=== PATIENT | female | born 1990 | race African-American/Black ===

== ENCOUNTER 2019-01-26 12:06 | Emergency (ER) | payer MEDICAID ==
[~2019-01-26] VITALS: Ht 170.2 cm; Wt 90.0 kg
[2019-01-26] MEDS ORDERED: SODIUM CHLORIDE 0.9% 1,000 ML IV ONE (12:55)
[2019-01-26] MEDS ORDERED: KETOROLAC 30MG/ML VIAL IV STA (12:55)
[2019-01-26 15:21] LABS: BASOPHILS % 0.3 % (0.0-2.0); EOSINOPHILS % 2.9 % (0.0-5.0); HEMATOCRIT. 40.1 % (36.0-48.0); HEMOGLOBIN. 13.3 g/dL (12.0-16.0); LYMPHOCYTES % 47.9 % (20.0-50.0); MEAN CORPUSCULAR HEMOGLOBIN 28.7 pg (28.0-32.0); MEAN CORPUSCULAR VOLUME 86.9 fL (81.0-99.0); MEAN PLATELET VOLUME 7.9 fl (7.4-10.4); MONOCYTES % 5.8 % (2.0-8.0); NEUTROPHILS % 43.1 % (40.0-76.0); PLATELET 298 x1000/uL (130-400); RED BLOOD CELL COUNT 4.62 mill/uL (4.2-5.4)
[2019-01-26 15:24] LABS: PARTIAL THROMBOPLASTIN TIME 29.9 sec (23.4-31.0); PROTHROMBIN TIME 10.5 sec (9.6-11.0)
[2019-01-26 15:44] LABS: CHLORIDE 110 mEq/L (98-107)
[2019-01-26 16:50] VITALS: BP 114/78
[2019-01-26] MEDS ORDERED: IOHEXOL-350 100 ML BOTTLE ONE (16:59)
== END 2019-01-26 18:30 | disposition home or self-care (01) ==
LOC: ER 12:06
DX: G43.909 Migraine, unspecified, not intractable, without status migrainosus (principal); H43.392 Other vitreous opacities, left eye; I51.9 Heart disease, unspecified; Z88.3 Allergy status to other anti-infective agents; Z88.2 Allergy status to sulfonamides
CPT/HCPCS: 36415; 70496; 80048; 81025; 85025; 85610; 85730; 96374; 99284; J1885; J7030; Q9967; Z7610

== ENCOUNTER 2019-04-04 22:41 | Emergency (ER) | payer MEDICAID, OTHER ==
[~2019-04-04] VITALS: Ht 170.2 cm; Wt 101.0 kg
[2019-04-05 00:22] LABS: BASOPHILS % 0.6 % (0.0-2.0); EOSINOPHILS % 4.9 % (0.0-5.0); HEMATOCRIT. 38.9 % (36.0-48.0); HEMOGLOBIN. 12.9 g/dL (12.0-16.0); LYMPHOCYTES % 46.2 % (20.0-50.0); MEAN CORPUSCULAR HEMOGLOBIN 28.7 pg (28.0-32.0); MEAN CORPUSCULAR VOLUME 86.3 fL (81.0-99.0); MEAN PLATELET VOLUME 8.2 fl (7.4-10.4); MONOCYTES % 8.2 % (2.0-8.0); NEUTROPHILS % 40.1 % (40.0-76.0); PLATELET 306 x1000/uL (130-400); RED BLOOD CELL COUNT 4.51 mill/uL (4.2-5.4); RED CELL DISTRIBUTION WIDTH 13.3 % (11.6-14.6)
[2019-04-05 00:28] LABS: CHLORIDE 109 mEq/L (98-107)
[2019-04-05 00:29] LABS: CLARITY URINE CLEAR (CLEAR); COLOR URINE YELLOW (YELLOW); KETONES URINE TRACE (NEGATIVE); LEUKOCYTE ESTERASE URINE NEGATIVE (NEGATIVE); NITRITE URINE NEGATIVE (NEGATIVE); OCCULT BLOOD URINE NEGATIVE (NEGATIVE); PH URINE 5.5 (4.5-8.0); PROTEIN URINE NEGATIVE (NEGATIVE); SPECIFIC GRAVITY URINE 1.039 (1.005-1.030)
[2019-04-05 00:30] LABS: PROTHROMBIN TIME 10.3 sec (9.6-11.0)
[2019-04-05 00:31] LABS: HCG SCREEN NEGATIVE
[2019-04-05] MEDS ORDERED: IBUPROFEN 800MG TABLET PO ONE (00:45)
[2019-04-05] MEDS ORDERED: ACETAMINOPHEN 325MG TABLET PO ONE (00:45)
[2019-04-05 01:27] VITALS: BP 119/75
== END 2019-04-05 01:29 | disposition home or self-care (01) ==
LOC: ER 22:41
DX: R51 Headache (principal); H53.8 Other visual disturbances
CPT/HCPCS: 36415; 71045; 81003; 81025; 82962; 84484; 84703; 93005; 99284

== ENCOUNTER 2019-04-18 20:27 | Emergency (ER) | payer OTHER ==
[~2019-04-18] VITALS: Ht 170.2 cm; Wt 73.0 kg
[2019-04-18] MEDS ORDERED: IBUPROFEN 600MG TABLET PO STA (21:00)
[2019-04-18 21:15] LABS: BASOPHILS % 1.1 % (0.0-2.0); EOSINOPHILS % 4.1 % (0.0-5.0); HEMATOCRIT. 40.1 % (36.0-48.0); HEMOGLOBIN. 13.5 g/dL (12.0-16.0); LYMPHOCYTES % 47.3 % (20.0-50.0); MEAN CORPUSCULAR VOLUME 86.3 fL (81.0-99.0); MEAN PLATELET VOLUME 8.3 fl (7.4-10.4); MONOCYTES % 6.4 % (2.0-8.0); NEUTROPHILS % 41.1 % (40.0-76.0); PLATELET 283 x1000/uL (130-400); RED BLOOD CELL COUNT 4.65 mill/uL (4.2-5.4); RED CELL DISTRIBUTION WIDTH 13.9 % (11.6-14.6)
[2019-04-18 21:22] LABS: CHLORIDE 107 mEq/L (98-107)
[2019-04-18 22:10] VITALS: BP 125/78
== END 2019-04-18 22:15 | disposition home or self-care (01) ==
LOC: ER 20:27
DX: R07.89 Other chest pain (principal); I49.9 Cardiac arrhythmia, unspecified; R00.0 Tachycardia, unspecified; Z88.1 Allergy status to other antibiotic agents; Z88.2 Allergy status to sulfonamides
CPT/HCPCS: 36415; 93005; 99284

== ENCOUNTER 2019-06-09 19:41 | Emergency (ER) | payer MEDICAID, OTHER ==
[~2019-06-09] VITALS: Ht 172.7 cm; Wt 64.0 kg
[2019-06-09] MEDS ORDERED: ONDANSETRON 4MG ODT PO ONE (22:30)
[2019-06-09 22:49] LABS: BASOPHILS % 0.4 % (0.0-2.0); EOSINOPHILS % 2.2 % (0.0-5.0); HEMATOCRIT. 38.2 % (36.0-48.0); HEMOGLOBIN. 12.7 g/dL (12.0-16.0); LYMPHOCYTES % 36.8 % (20.0-50.0); MEAN CORPUSCULAR HEMOGLOBIN 28.8 pg (28.0-32.0); MEAN CORPUSCULAR VOLUME 86.8 fL (81.0-99.0); MEAN PLATELET VOLUME 8.6 fl (7.4-10.4); MONOCYTES % 7.5 % (2.0-8.0); NEUTROPHILS % 53.1 % (40.0-76.0); PLATELET 255 x1000/uL (130-400); RED CELL DISTRIBUTION WIDTH 13.8 % (11.6-14.6)
[2019-06-09 22:50] LABS: CHLORIDE 110 mEq/L (98-107)
[2019-06-10 00:02] LABS: CLARITY URINE CLOUDY (CLEAR); COLOR URINE YELLOW (YELLOW); KETONES URINE TRACE (NEGATIVE); LEUKOCYTE ESTERASE URINE 1+ (NEGATIVE); NITRITE URINE NEGATIVE (NEGATIVE); OCCULT BLOOD URINE NEGATIVE (NEGATIVE); PROTEIN URINE NEGATIVE (NEGATIVE); SPECIFIC GRAVITY URINE 1.031 (1.005-1.030)
[2019-06-10 01:50] VITALS: BP 120/78
== END 2019-06-10 02:24 | disposition home or self-care (01) ==
LOC: ER 19:41
DX: R00.2 Palpitations (principal); I49.9 Cardiac arrhythmia, unspecified; Z88.2 Allergy status to sulfonamides; Z88.3 Allergy status to other anti-infective agents
CPT/HCPCS: 36415; 81003; 81025; 84484; 93005; 99284

== ENCOUNTER 2019-07-18 00:10 | Emergency (ER) | payer MEDICAID ==
[~2019-07-18] VITALS: Ht 170.2 cm; Wt 83.0 kg
[2019-07-18] MEDS ORDERED: SODIUM CHLORIDE 0.9% 1,000 ML IV ONE (01:16)
[2019-07-18] MEDS ORDERED: ONDANSETRON HCL 4MG/2ML INJ IV STA (01:16)
[2019-07-18 01:39] LABS: BASOPHILS % 0.5 % (0.0-2.0); EOSINOPHILS % 4.1 % (0.0-5.0); HEMATOCRIT. 39.2 % (36.0-48.0); HEMOGLOBIN. 13.1 g/dL (12.0-16.0); LYMPHOCYTES % 52.2 % (20.0-50.0); MEAN CORPUSCULAR HEMOGLOBIN 28.7 pg (28.0-32.0); MEAN PLATELET VOLUME 8.7 fl (7.4-10.4); MONOCYTES % 6.1 % (2.0-8.0); NEUTROPHILS % 37.1 % (40.0-76.0); PLATELET 344 x1000/uL (130-400); RED BLOOD CELL COUNT 4.56 mill/uL (4.2-5.4); RED CELL DISTRIBUTION WIDTH 14.6 % (11.6-14.6)
[2019-07-18 01:44] LABS: CHLORIDE 105 mEq/L (98-107)
[2019-07-18 04:51] LABS: CLARITY URINE CLEAR (CLEAR); COLOR URINE YELLOW (YELLOW); KETONES URINE 3+ (NEGATIVE); LEUKOCYTE ESTERASE URINE 1+ (NEGATIVE); NITRITE URINE NEGATIVE (NEGATIVE); OCCULT BLOOD URINE NEGATIVE (NEGATIVE); PROTEIN URINE NEGATIVE (NEGATIVE); SPECIFIC GRAVITY URINE 1.038 (1.005-1.030); UROBILINOGEN URINE 0.2 E.U./dL (0.2-1.0)
[2019-07-18 05:02] LABS: CANNABINOID URINE SCREEN NEGATIVE (NEGATIVE); METHADONE URINE SCREEN NEGATIVE (NEGATIVE); OPIATES URINE SCREEN NEGATIVE (NEGATIVE); PHENCYCLIDINE URINE SCREEN NEGATIVE (NEGATIVE)
[2019-07-18 05:03] LABS: *AMPHETAMINES SCREEN URINE NEGATIVE (NEGATIVE); *BARBITURATES SCREEN URINE NEGATIVE (NEGATIVE); *BENZODIAZEPINES SCREEN URINE NEGATIVE (NEGATIVE); *COCAINE SCREEN URINE NEGATIVE (NEGATIVE)
[2019-07-18 05:57] VITALS: BP 129/90
== END 2019-07-18 05:59 | disposition home or self-care (01) ==
LOC: ER 00:10
DX: R10.13 Epigastric pain (principal); R00.2 Palpitations; R42 Dizziness and giddiness; R00.0 Tachycardia, unspecified; Z88.2 Allergy status to sulfonamides; Z86.79 Personal history of other diseases of the circulatory system
CPT/HCPCS: 36415; 71045; 80053; 80305; 81003; 83690; 84484; 85025; 93005; 96374; 99284; J2405; J7030

== ENCOUNTER 2019-07-19 08:21 | Emergency (ER) | payer MEDICAID ==
[~2019-07-19] VITALS: Ht 170.2 cm; Wt 64.0 kg
[2019-07-19] MEDS ORDERED: ONDANSETRON HCL 4MG/2ML INJ IV STA (08:41)
[2019-07-19] MEDS ORDERED: SODIUM CHLORIDE 0.9% 1,000 ML IV ONE (08:41)
[2019-07-19 09:28] LABS: BASOPHILS % 0.8 % (0.0-2.0); EOSINOPHILS % 4.8 % (0.0-5.0); HEMATOCRIT. 40.1 % (36.0-48.0); HEMOGLOBIN. 13.5 g/dL (12.0-16.0); LYMPHOCYTES % 52.3 % (20.0-50.0); MEAN CORPUSCULAR HEMOGLOBIN 28.8 pg (28.0-32.0); MEAN CORPUSCULAR VOLUME 85.7 fL (81.0-99.0); MEAN PLATELET VOLUME 8.6 fl (7.4-10.4); MONOCYTES % 6.2 % (2.0-8.0); NEUTROPHILS % 35.9 % (40.0-76.0); PLATELET 305 x1000/uL (130-400); RED BLOOD CELL COUNT 4.68 mill/uL (4.2-5.4); RED CELL DISTRIBUTION WIDTH 14.2 % (11.6-14.6)
[2019-07-19] MEDS ORDERED: VISCOUS LIDOCAINE 2% 15 ML UDC PO STA (09:28)
[2019-07-19] MEDS ORDERED: FAMOTIDINE 20MG/2ML VIAL IV STA ×2 (09:28→12:33)
[2019-07-19] MEDS ORDERED: MAGNESIUM/ALUMINUM HYDROXIDE/SIMETHICONE 30ML UDC PO STA ×2 (09:28→12:33)
[2019-07-19 09:35] LABS: CHLORIDE 105 mEq/L (98-107)
[2019-07-19 09:48] LABS: HCG SCREEN NEGATIVE
[2019-07-19 11:00] LABS: CLARITY URINE CLOUDY (CLEAR); COLOR URINE YELLOW (YELLOW); KETONES URINE 2+ (NEGATIVE); LEUKOCYTE ESTERASE URINE TRACE (NEGATIVE); NITRITE URINE NEGATIVE (NEGATIVE); OCCULT BLOOD URINE NEGATIVE (NEGATIVE); PH URINE 5.5 (4.5-8.0); PROTEIN URINE NEGATIVE (NEGATIVE); SPECIFIC GRAVITY URINE 1.064 (1.005-1.030); UROBILINOGEN URINE 0.2 E.U./dL (0.2-1.0)
[2019-07-19] MEDS ORDERED: CEFTRIAXONE 1 G PREMIX 50 ML IV ONE (11:30)
[2019-07-19] MEDS ORDERED: IOHEXOL-300 100 ML BOTTLE ONE ×2 (12:54→13:32)
[2019-07-19 13:02] VITALS: BP 122/78
[2019-07-19 14:11] LABS: *AMPHETAMINES SCREEN URINE NEGATIVE (NEGATIVE); *BARBITURATES SCREEN URINE NEGATIVE (NEGATIVE); *BENZODIAZEPINES SCREEN URINE NEGATIVE (NEGATIVE); *COCAINE SCREEN URINE NEGATIVE (NEGATIVE); METHADONE URINE SCREEN NEGATIVE (NEGATIVE); OPIATES URINE SCREEN NEGATIVE (NEGATIVE)
[2019-07-19 14:12] LABS: CANNABINOID URINE SCREEN NEGATIVE (NEGATIVE); PHENCYCLIDINE URINE SCREEN NEGATIVE (NEGATIVE)
== END 2019-07-19 12:55 | disposition home or self-care (01) ==
LOC: ER 08:21 → CANBEDREQ 13:04
DX: K29.70 Gastritis, unspecified, without bleeding (principal); N39.0 Urinary tract infection, site not specified; F41.1 Generalized anxiety disorder; K59.00 Constipation, unspecified; R03.0 Elevated blood-pressure reading, without diagnosis of hypertension
CPT/HCPCS: 36415; 71045; 74177; 80053; 80305; 81003; 83605; 83690; 83880; 84443; 84484; 84703; 85025; 85379; 93005; 96361; 96365; 96375; 96376; 99284; J0696; J2405; J3490; J7030; Q9967; Z7610

== ENCOUNTER 2019-08-11 07:24 | Emergency (ER) | payer MEDICAID ==
[~2019-08-11] VITALS: Ht 170.2 cm; Wt 79.0 kg
[2019-08-11] MEDS ORDERED: DICYCLOMINE 10 MG/5 ML ORAL SYR PO ONE (08:30)
[2019-08-11] MEDS ORDERED: MAGNESIUM/ALUMINUM HYDROXIDE/SIMETHICONE 30ML UDC PO ONE (08:30)
[2019-08-11 08:44] LABS: EOSINOPHILS % 6.7 % (0.0-5.0); HEMATOCRIT. 38.3 % (36.0-48.0); HEMOGLOBIN. 12.6 g/dL (12.0-16.0); LYMPHOCYTES % 39.4 % (20.0-50.0); MEAN CORPUSCULAR HEMOGLOBIN 28.3 pg (28.0-32.0); MEAN CORPUSCULAR VOLUME 85.8 fL (81.0-99.0); MEAN PLATELET VOLUME 8.2 fl (7.4-10.4); MONOCYTES % 8.2 % (2.0-8.0); NEUTROPHILS % 44.7 % (40.0-76.0); PLATELET 279 x1000/uL (130-400); RED BLOOD CELL COUNT 4.47 mill/uL (4.2-5.4); RED CELL DISTRIBUTION WIDTH 14.8 % (11.6-14.6)
[2019-08-11 08:51] LABS: CHLORIDE 107 mEq/L (98-107)
[2019-08-11 09:31] LABS: CLARITY URINE CLOUDY (CLEAR); COLOR URINE YELLOW (YELLOW); KETONES URINE 1+ (NEGATIVE); LEUKOCYTE ESTERASE URINE 1+ (NEGATIVE); NITRITE URINE NEGATIVE (NEGATIVE); OCCULT BLOOD URINE NEGATIVE (NEGATIVE); PH URINE 5.5 (4.5-8.0); PROTEIN URINE TRACE (NEGATIVE); SPECIFIC GRAVITY URINE 1.025 (1.005-1.030); UROBILINOGEN URINE 0.2 E.U./dL (0.2-1.0)
[2019-08-11 10:24] VITALS: BP 100/96
== END 2019-08-11 10:31 | disposition home or self-care (01) ==
LOC: ER 07:24
DX: R00.2 Palpitations (principal); N30.00 Acute cystitis without hematuria; I49.9 Cardiac arrhythmia, unspecified; Z88.2 Allergy status to sulfonamides
CPT/HCPCS: 36415; 81003; 93005; 99284

== ENCOUNTER 2019-08-19 12:37 | Emergency (ER) | payer MEDICAID ==
[~2019-08-19] VITALS: Ht 170.2 cm; Wt 110.0 kg
[2019-08-19 12:42] VITALS: BP 108/68
== END 2019-08-19 15:21 | disposition left against medical advice (07) ==
LOC: ER 12:50
DX: Z53.21 Procedure and treatment not carried out due to patient leaving prior to being seen by health care provider (principal)

== ENCOUNTER 2019-08-20 14:49 | Emergency (ER) | payer MEDICAID ==
[~2019-08-20] VITALS: Ht 170.2 cm; Wt 78.0 kg
[2019-08-20] MEDS ORDERED: IBUPROFEN 800MG TABLET PO ONE (21:30)
[2019-08-20] MEDS ORDERED: ACETAMINOPHEN 325MG TABLET PO ONE (21:30)
[2019-08-20] MEDS ORDERED: AZITHROMYCIN 500 MG TABLET PO ONE (21:30)
[2019-08-20] MEDS ORDERED: PREDNISONE 20MG TABLET PO ONE (21:30)
[2019-08-20 22:36] VITALS: BP 136/80
[2019-08-21 01:17] LABS: CLARITY URINE CLEAR (CLEAR); COLOR URINE YELLOW (YELLOW); KETONES URINE 3+ (NEGATIVE); LEUKOCYTE ESTERASE URINE 1+ (NEGATIVE); NITRITE URINE NEGATIVE (NEGATIVE); OCCULT BLOOD URINE NEGATIVE (NEGATIVE); PROTEIN URINE TRACE (NEGATIVE); SPECIFIC GRAVITY URINE 1.029 (1.005-1.030); UROBILINOGEN URINE 0.2 E.U./dL (0.2-1.0)
== END 2019-08-21 00:51 | disposition home or self-care (01) ==
LOC: ER 18:14
DX: J40 Bronchitis, not specified as acute or chronic (principal)
CPT/HCPCS: 71045; 81003; 87804; 99284; J7512

== ENCOUNTER 2019-09-04 09:23 | Emergency (ER) | payer OTHER ==
[~2019-09-04] VITALS: Ht 167.6 cm; Wt 61.0 kg
[2019-09-04 14:14] LABS: CLARITY URINE CLEAR (CLEAR); COLOR URINE YELLOW (YELLOW); KETONES URINE NEGATIVE (NEGATIVE); LEUKOCYTE ESTERASE URINE 3+ (NEGATIVE); NITRITE URINE NEGATIVE (NEGATIVE); OCCULT BLOOD URINE NEGATIVE (NEGATIVE); PH URINE 7.5 (4.5-8.0); PROTEIN URINE NEGATIVE (NEGATIVE); UROBILINOGEN URINE 0.2 E.U./dL (0.2-1.0)
[2019-09-04 15:06] VITALS: BP 154/78
== END 2019-09-04 15:08 | disposition home or self-care (01) ==
LOC: ER 09:23
DX: B37.49 Other urogenital candidiasis (principal); I10 Essential (primary) hypertension; R09.81 Nasal congestion; R05 Cough; Z87.440 Personal history of urinary (tract) infections; Z88.2 Allergy status to sulfonamides; Z88.8 Allergy status to other drugs, medicaments and biological substances
CPT/HCPCS: 81003; 99283

== ENCOUNTER 2019-09-06 08:06 | Emergency (ER) | payer MEDICAID, OTHER ==
[~2019-09-06] VITALS: Ht 170.2 cm; Wt 77.0 kg
[2019-09-06 09:04] LABS: CHLORIDE 108 mEq/L (98-107)
[2019-09-06 09:09] LABS: BASOPHILS % 0.6 % (0.0-2.0); EOSINOPHILS % 2.5 % (0.0-5.0); HEMATOCRIT. 38.8 % (36.0-48.0); HEMOGLOBIN. 13.2 g/dL (12.0-16.0); MEAN CORPUSCULAR HEMOGLOBIN 29.2 pg (28.0-32.0); MEAN CORPUSCULAR VOLUME 86.2 fL (81.0-99.0); MEAN PLATELET VOLUME 8.3 fl (7.4-10.4); MONOCYTES % 7.6 % (2.0-8.0); NEUTROPHILS % 46.3 % (40.0-76.0); PLATELET 313 x1000/uL (130-400); RED CELL DISTRIBUTION WIDTH 14.9 % (11.6-14.6)
[2019-09-06 09:46] LABS: CLARITY URINE CLEAR (CLEAR); COLOR URINE YELLOW (YELLOW); KETONES URINE TRACE (NEGATIVE); LEUKOCYTE ESTERASE URINE NEGATIVE (NEGATIVE); NITRITE URINE NEGATIVE (NEGATIVE); OCCULT BLOOD URINE NEGATIVE (NEGATIVE); PH URINE 5.5 (4.5-8.0); PROTEIN URINE NEGATIVE (NEGATIVE); SPECIFIC GRAVITY URINE 1.012 (1.005-1.030); UROBILINOGEN URINE 0.2 E.U./dL (0.2-1.0)
[2019-09-06 11:00] VITALS: BP 106/57
== END 2019-09-06 11:17 | disposition home or self-care (01) ==
LOC: ER 08:06
DX: R30.0 Dysuria (principal); R00.2 Palpitations; Z88.2 Allergy status to sulfonamides; Z88.3 Allergy status to other anti-infective agents
CPT/HCPCS: 36415; 76770; 80053; 81003; 85025; 93005; 99284

== ENCOUNTER 2019-09-22 17:58 | Emergency (ER) | payer OTHER ==
[~2019-09-22] VITALS: Ht 170.2 cm; Wt 72.0 kg
[2019-09-22] MEDS ORDERED: ONDANSETRON HCL 4MG/2ML INJ IV STA (20:20)
[2019-09-22] MEDS ORDERED: SODIUM CHLORIDE 0.9% 1,000 ML IV ONE (20:20)
[2019-09-22 21:18] LABS: CLARITY URINE CLEAR (CLEAR); COLOR URINE YELLOW (YELLOW); KETONES URINE TRACE (NEGATIVE); LEUKOCYTE ESTERASE URINE TRACE (NEGATIVE); NITRITE URINE NEGATIVE (NEGATIVE); OCCULT BLOOD URINE NEGATIVE (NEGATIVE); PH URINE 5.5 (4.5-8.0); PROTEIN URINE NEGATIVE (NEGATIVE); SPECIFIC GRAVITY URINE 1.017 (1.005-1.030); UROBILINOGEN URINE 0.2 E.U./dL (0.2-1.0)
[2019-09-22] MEDS ORDERED: ONDANSETRON 4MG ODT PO ONE (21:45)
[2019-09-22] MEDS ORDERED: MORPHINE SULFATE 4 MG/ML CPJ (NOT FOR IM USE) IV ONE (21:45)
[2019-09-22 22:03] LABS: BASOPHILS % 0.5 % (0.0-2.0); EOSINOPHILS % 3.8 % (0.0-5.0); HEMATOCRIT. 38.8 % (36.0-48.0); HEMOGLOBIN. 12.7 g/dL (12.0-16.0); LYMPHOCYTES % 46.5 % (20.0-50.0); MEAN CORPUSCULAR HEMOGLOBIN 28.3 pg (28.0-32.0); MEAN CORPUSCULAR VOLUME 86.3 fL (81.0-99.0); MEAN PLATELET VOLUME 8.3 fl (7.4-10.4); MONOCYTES % 6.6 % (2.0-8.0); NEUTROPHILS % 42.6 % (40.0-76.0); PLATELET 287 x1000/uL (130-400); RED CELL DISTRIBUTION WIDTH 15.2 % (11.6-14.6)
[2019-09-22 22:09] LABS: CHLORIDE 107 mEq/L (98-107)
[2019-09-22] MEDS ORDERED: KETOROLAC 15MG/ML VIAL IV ONE (22:15)
[2019-09-22 22:30] VITALS: BP 108/68
== END 2019-09-22 23:15 | disposition home or self-care (01) ==
LOC: ER 17:58
DX: R19.7 Diarrhea, unspecified (principal); R11.2 Nausea with vomiting, unspecified; Z88.2 Allergy status to sulfonamides; Z88.8 Allergy status to other drugs, medicaments and biological substances
CPT/HCPCS: 36415; 80053; 81003; 83690; 85025; 96360; 99283; J1885; J2405; J7030; Q0162

== ENCOUNTER 2019-09-28 01:55 | Emergency (ER) | payer MEDICAID, OTHER ==
[~2019-09-28] VITALS: Ht 172.7 cm; Wt 68.0 kg
[2019-09-28] MEDS ORDERED: VISCOUS LIDOCAINE 2% 15 ML UDC PO STA (02:54)
[2019-09-28] MEDS ORDERED: MAGNESIUM/ALUMINUM HYDROXIDE/SIMETHICONE 30ML UDC PO STA (02:54)
[2019-09-28 03:31] LABS: CLARITY URINE CLEAR (CLEAR); COLOR URINE YELLOW (YELLOW); KETONES URINE TRACE (NEGATIVE); LEUKOCYTE ESTERASE URINE NEGATIVE (NEGATIVE); NITRITE URINE NEGATIVE (NEGATIVE); OCCULT BLOOD URINE NEGATIVE (NEGATIVE); PROTEIN URINE NEGATIVE (NEGATIVE); SPECIFIC GRAVITY URINE 1.016 (1.005-1.030); UROBILINOGEN URINE 0.2 E.U./dL (0.2-1.0)
[2019-09-28 03:33] LABS: BASOPHILS % 0.7 % (0.0-2.0); HEMATOCRIT. 40.1 % (36.0-48.0); HEMOGLOBIN. 13.1 g/dL (12.0-16.0); LYMPHOCYTES % 53.4 % (20.0-50.0); MEAN CORPUSCULAR HEMOGLOBIN 28.5 pg (28.0-32.0); MEAN CORPUSCULAR VOLUME 86.8 fL (81.0-99.0); MEAN PLATELET VOLUME 8.4 fl (7.4-10.4); MONOCYTES % 6.2 % (2.0-8.0); NEUTROPHILS % 36.7 % (40.0-76.0); PLATELET 302 x1000/uL (130-400); RED BLOOD CELL COUNT 4.62 mill/uL (4.2-5.4); RED CELL DISTRIBUTION WIDTH 15.2 % (11.6-14.6)
[2019-09-28 03:37] LABS: *AMPHETAMINES SCREEN URINE NEGATIVE (NEGATIVE)
[2019-09-28 03:38] LABS: *BARBITURATES SCREEN URINE NEGATIVE (NEGATIVE); *BENZODIAZEPINES SCREEN URINE NEGATIVE (NEGATIVE); *COCAINE SCREEN URINE NEGATIVE (NEGATIVE); METHADONE URINE SCREEN NEGATIVE (NEGATIVE); OPIATES URINE SCREEN NEGATIVE (NEGATIVE); PHENCYCLIDINE URINE SCREEN NEGATIVE (NEGATIVE)
[2019-09-28 03:39] LABS: CANNABINOID URINE SCREEN NEGATIVE (NEGATIVE)
[2019-09-28 03:41] LABS: CHLORIDE 106 mEq/L (98-107)
[2019-09-28 03:44] LABS: ETHANOL BLOOD < 10 mg/dL
[2019-09-28] MEDS ORDERED: ACETAMINOPHEN 500MG TABLET PO ONE (04:15)
[2019-09-28 05:00] VITALS: BP 115/76
== END 2019-09-28 06:57 | disposition home or self-care (01) ==
LOC: ER 02:11
DX: I88.0 Nonspecific mesenteric lymphadenitis (principal)
CPT/HCPCS: 36415; 74176; 80053; 80305; 80320; 81003; 81025; 85025; 93005; 99284; G0480

== ENCOUNTER 2019-10-17 10:04 | Emergency (ER) | payer OTHER ==
[~2019-10-17] VITALS: Ht 172.7 cm; Wt 55.0 kg
[2019-10-17 11:07] LABS: BASOPHILS % 0.5 % (0.0-2.0); EOSINOPHILS % 3.2 % (0.0-5.0); HEMATOCRIT. 41.2 % (36.0-48.0); HEMOGLOBIN. 13.8 g/dL (12.0-16.0); LYMPHOCYTES % 39.2 % (20.0-50.0); MEAN CORPUSCULAR HEMOGLOBIN 29.2 pg (28.0-32.0); MEAN CORPUSCULAR VOLUME 87.2 fL (81.0-99.0); MEAN PLATELET VOLUME 8.9 fl (7.4-10.4); MONOCYTES % 5.5 % (2.0-8.0); NEUTROPHILS % 51.6 % (40.0-76.0); PLATELET 243 x1000/uL (130-400); RED BLOOD CELL COUNT 4.72 mill/uL (4.2-5.4)
[2019-10-17 11:12] LABS: CHLORIDE 104 mEq/L (98-107)
[2019-10-17 11:13] LABS: PROTHROMBIN TIME 11.2 sec (9.6-11.0)
[2019-10-17] MEDS ORDERED: SODIUM CHLORIDE 0.9% 1,000 ML IV ONE (11:15)
[2019-10-17 13:12] LABS: CLARITY URINE CLEAR (CLEAR); COLOR URINE YELLOW (YELLOW); KETONES URINE 2+ (NEGATIVE); LEUKOCYTE ESTERASE URINE NEGATIVE (NEGATIVE); NITRITE URINE NEGATIVE (NEGATIVE); OCCULT BLOOD URINE NEGATIVE (NEGATIVE); PROTEIN URINE NEGATIVE (NEGATIVE); SPECIFIC GRAVITY URINE 1.027 (1.005-1.030); UROBILINOGEN URINE 0.2 E.U./dL (0.2-1.0)
[2019-10-17] MEDS ORDERED: IOHEXOL-300 100 ML BOTTLE ONE (14:47)
[2019-10-17 16:48] VITALS: BP 98/54
== END 2019-10-17 17:12 | disposition home or self-care (01) ==
LOC: ER 10:16
DX: R10.84 Generalized abdominal pain (principal); R00.0 Tachycardia, unspecified; K59.00 Constipation, unspecified; I88.0 Nonspecific mesenteric lymphadenitis; R11.0 Nausea; Z88.2 Allergy status to sulfonamides; Z88.8 Allergy status to other drugs, medicaments and biological substances; Z87.440 Personal history of urinary (tract) infections
CPT/HCPCS: 36415; 71045; 74177; 80053; 81003; 81025; 83690; 84443; 84484; 85025; 85610; 93005; 99285; J7030; Q9967

== ENCOUNTER 2019-10-17 18:31 | Emergency (ER) | payer MEDICAID, OTHER ==
[~2019-10-17] VITALS: Ht 172.7 cm; Wt 75.0 kg
[2019-10-17 18:39] VITALS: BP 146/90
[2019-10-17] MEDS ORDERED: METOCLOPRAMIDE HCL 10MG TABLET PO ONE (20:15)
[2019-10-17] MEDS ORDERED: BISACODYL 10MG SUPP PR ONE (20:15)
[2019-10-17] MEDS ORDERED: ONDANSETRON 4MG ODT PO ONE (20:30)
== END 2019-10-17 20:43 | disposition home or self-care (01) ==
LOC: ER 18:31
DX: K59.00 Constipation, unspecified (principal); R53.1 Weakness; R06.02 Shortness of breath; Z88.2 Allergy status to sulfonamides; Z88.8 Allergy status to other drugs, medicaments and biological substances
CPT/HCPCS: 99283; Q0162

== ENCOUNTER 2025-01-09 03:45 | Emergency (ER) | payer MEDICAID, OTHER ==
[~2025-01-09] VITALS: Ht 170.2 cm; Wt 104.0 kg
[2025-01-09 04:01] VITALS: O2SAT 99
[2025-01-09] MEDS: SODIUM CHLORIDE 0.9% 1,000 ML IV ONE (04:22)
[2025-01-09 04:24] VITALS: TEMP 36.6
[2025-01-09 05:12] LABS: CARBON DIOXIDE 25 mEq/L (21-32); CHLORIDE 104 mEq/L (98-107); POTASSIUM 3.8 mEq/L (3.5-5.1); SODIUM 140 mEq/L (136-145)
[2025-01-09 05:13] LABS: CALCIUM 9.1 mg/dL (8.7-10.4)
[2025-01-09 05:15] LABS: BASOPHILS % 0.3 % (0.0-2.0); EOSINOPHILS % 2.7 % (0.0-5.0); HEMATOCRIT. 37.3 % (36.0-48.0); HEMOGLOBIN. 12.1 g/dL (12.0-16.0); LYMPHOCYTES % 37.9 % (20.0-50.0); MEAN CORPUSCULAR HEMOGLOBIN 26.9 pg (28.0-32.0); MEAN CORPUSCULAR HGB CONC 32.5 g/dL (31.0-37.0); MEAN CORPUSCULAR VOLUME 82.7 fL (81.0-99.0); MONOCYTES % 8.3 % (2.0-8.0); NEUTROPHILS % 50.8 % (40.0-76.0); PLATELET 335 x1000/uL (130-400); RED BLOOD CELL COUNT 4.51 mill/uL (4.2-5.4); RED CELL DISTRIBUTION WIDTH 14.9 % (11.6-14.6); WHITE BLOOD COUNT 7.9 x1000/uL (4.5-11.0)
[2025-01-09 05:18] LABS: CREATININE 0.9 mg/dL (0.6-1.0); GLUCOSE 109 mg/dL (70-105); UREA NITROGEN BLOOD 11 mg/dL (9-23)
[2025-01-09 05:19] LABS: B-HCG QUANTITATIVE 7 mIU/mL (<6)
[2025-01-09] MEDS ORDERED: METOCLOPRAMIDE HCL 10MG TABLET PO ONE (06:00)
[2025-01-09 06:12] VITALS: BP 112/68; PULSE 74; RESP 12; O2SAT 97
== END 2025-01-09 06:10 | disposition home or self-care (01) ==
LOC: ER 03:45
DX: O20.9 Hemorrhage in early pregnancy, unspecified (principal); N89.8 Other specified noninflammatory disorders of vagina; Z88.1 Allergy status to other antibiotic agents; Z88.2 Allergy status to sulfonamides; Z3A.01 Less than 8 weeks gestation of pregnancy
CPT/HCPCS: 99284; 76801; 80048; 84702; 85025; 86850; 86900; 86901; 36415; 76817; J7030